=== PATIENT | female | born 1995 | race Caucasian/White ===

== ENCOUNTER → 2018-02-19 | Outpatient (CLI) | payer OTHER | LOC: M LRY 08:33 | DX: N92.6 Irregular menstruation, unspecified (principal); Z97.5 Presence of (intrauterine) contraceptive device | CPT/HCPCS: 76830 ==

== ENCOUNTER 2018-05-29 07:32 | Emergency (ER) | payer OTHER | END 2018-05-29 08:05 | disposition home or self-care (01) | LOC: M ED 07:32 | DX: H10.31 Unspecified acute conjunctivitis, right eye (principal) | CPT/HCPCS: 99283 ==

== ENCOUNTER 2019-08-02 10:47 | Outpatient (CLI) | payer OTHER ==
[~2019-08-02] VITALS: Ht 157.5 cm; Wt 71.0 kg
[~2019-08-02 10:47] MED LIST: OFLO3OPSO OD
[2019-08-02 11:05] VITALS: BP 106/70
[2019-08-02] MEDS ORDERED: PRENTAB9 PO (11:11)
[2019-08-02] MEDS ORDERED: IRON65TA2 PO (11:15)
[2019-08-02] MEDS ORDERED: VITA100T59 PO (11:15)
[2019-08-02] MEDS ORDERED: APAP325T4 PO (11:17)
--- NOTE | 2019-08-02 11:51 | IPNPDOC ---
Text Note Date of Service The patient was seen on 08/02/19. NOTE OB Considerations: Uncomplicated 23y/o @ 38+3 wks by 6 wk US (SIOMARA [id number]) presents to triage complaining of low back pain. Patient reports back pain since Thursday, worsened after membranes sweep yesterday. She reports constant low back pain, which sometimes increases. She denies frontal contractions, LOF, vaginal bleeding. She endorses active movement. She denies abnormal discharge or dysuria. No fevers/chills. VS: T98.6 HR 106/70 RR 20 HR 86 98% RA Gen: Alert and oriented, no acute distress Resp: Non labored breathing CV: well perfused Abd: Gravid, non tender/non distended Back: patient reports low midline back pain. No CVA tenderness. Ext: No edema, erythema or calf tenderness DCE: /-3, posterior NST: 135, mod jensen, +accels, no decels TOCO: initially q4-5 minute contractions A/p: 23y/o @ 38+3 wks with low back pain of , not in active la bor. Normotensive with reassuring status. -Patient to continue heating pad, Tylenol 1,000mg q6 hours PRN not to exceed 3g /day. Warm bath for comfort. 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 States they are supportive and send her home as needed. -Return and labor precautions given -F/u centering as scheduled VS,Fishbone, I+O VS, Fishbone, I+O Vital Signs Date Time Temp Pulse Resp B/P (MAP) Pulse Ox O2 Delivery O2 Flow Rate FiO2 08/02/19 11:05 98.6 86 20 106/70 (82) 98 Room Air Mara Fierro MD Aug 02, 2019 11:51
[2019-08-02 11:58] VITALS: BP 118/66
== END 2019-08-02 12:00 | disposition home or self-care (01) ==
LOC: M LDO 10:47
PROVIDERS: ATTEND Obstetrics & Gynecology
DX: O26.893 Other specified pregnancy related conditions, third trimester (principal); M54.5 Low back pain; Z3A.38 38 weeks gestation of pregnancy
CPT/HCPCS: 59025; G0378; G0463

== ENCOUNTER 2019-08-04 19:50 | Outpatient (CLI) | payer OTHER ==
[~2019-08-04] VITALS: Ht 157.5 cm; Wt 73.1 kg
[~2019-08-04 19:50] MED LIST changes: +APAP325T4 PO; +IRON65TA2 PO; +PRENTAB9 PO; +VITA100T59 PO
[2019-08-04 20:06] VITALS: BP 124/75
--- NOTE | 2019-08-05 08:52 | HPE ---
DATE OF ADMISSION: 08/04/2019 This lady is a 23-year-old 2, para 1, LMP 09/15/2018 EDC 08/13/2019 at 38 and 6 weeks of gestation having contractions post stripping of her membranes in the office. Group B Streptococcus (GBS) negative. She was in here less than 48 hours ago with similar complaints. PAST HISTORY: 01/22/2015 at 37 weeks induction of labor, male, 5 pounds 12 ounces. LABS: O positive. HIV negative. Hep negative. RPR negative. Rubella immune. Varicella immune. Pap LGSIL. Urine negative. Gonorrhea and chlamydia are negative. 1-hour glucose was 131. There is no suggestion of a 3-hour GTT. Blood pressure is 124/75, respirations are 18, pulse 80, temperature 98.0. Urine is 1.005, pH 7, the rest are negative. On evaluation she does not appear in any acute distress. Symphysis fundus height is 38, vertex presenting. Four quadrant bowel sounds are noted. Pelvic examination she is 2-1/2 cm posteriorly, thick, -3 station. No change from her previous examination two days ago. She has a category 1 strip. Our plan of management is to make sure she is well-hydrated, discharged with instructions, keep her centering appointment on 08/09/2019. She was discharged undelivered. The rest the examination was unremarkable. Normocephalic, atraumatic. Neck full range of motion. Pupils equal and reactive to light. Distal pulses symmetric. No evidence of DVT, PE or superficial phlebitis. Chest is clear bilaterally bases. No wheezes or rhonchi. No CVA tenderness. Abdomen was soft, four quadrant bowel sounds are noted. No rashes, lesions or pruritus. No arthralgia or myalgia. No complaint joint pain. No cough, wheeze, shortness of breath or dyspnea on exertion. No nausea, vomiting, diarrhea or constipation. 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 No STDs, but she has an LGSIL on Pap smear to be followed up . Family history noncontributory. No surgical history contributory. She does not smoke, drink or abuse drugs. She is . No domestic violence. Presently her mother is at home looking after their 4-year-old. In summary have a term gestation having Matthew Avelar contractions. No change in her cervix. Discharged undelivered.
== END 2019-08-04 21:01 | disposition home or self-care (01) ==
LOC: M LDO 19:50
PROVIDERS: ATTEND Obstetrics & Gynecology
DX: O47.1 False labor at or after 37 completed weeks of gestation (principal); Z3A.38 38 weeks gestation of pregnancy
CPT/HCPCS: 59025; G0378; G0463

== ENCOUNTER 2019-08-09 03:37 | Inpatient (IN) | payer OTHER ==
[~2019-08-09] VITALS: Ht 157.5 cm; Wt 72.5 kg
[2019-08-09] VITALS (13 sets, daily range): BP systolic 115–166; BP diastolic 73–96
[2019-08-09] MEDS ORDERED: LACTATED RINGER'S 1000 ML IV STA (04:54)
[2019-08-09] MEDS ORDERED: LR 1,000 ML IV SCH ×2 (04:54→12:00)
--- NOTE | 2019-08-09 04:54 | IPNPDOC ---
Text Note Date of Service The patient was seen on 08/09/19. NOTE patient is a 24 yo @39+4wks gestation presents with regular painful contractions. denies CHIARA/VB. +FM. vitals: reviewed nad abd: gravid, soft, nt, cephalic by chevy's fht: 135/mod jensen/pos accel/no decel toco: ctx q 3mins ce: 60/-1 (per nursing check) a/p patient not in active labor. recheck in 2 hrs. repeat BP for mild range diastolic. DO Olivia VS,Daisy, I+O VS, Jacke, I+O Vital Signs Date Time Temp Pulse Resp B/P (MAP) Pulse Ox O2 Delivery O2 Flow Rate FiO2 08/09/19 03:52 98.3 76 18 131/96 (108) GIOVANI AMBROSIO DO Aug 09, 2019 04:26
[2019-08-09 05:27] LABS: HEMATOCRIT 33.1 % (36.0-47.0); HEMOGLOBIN 10.7 g/dl (12.0-15.5); MEAN CORPUSCULAR HEMOGLOBIN 27.1 pg (27.0-33.0); MEAN CORPUSCULAR HGB CONC 32.3 g/dl (32.0-36.5); MEAN CORPUSCULAR VOLUME 83.8 fl (80.0-96.0); PLATELET COUNT, AUTOMATED 280 10^3/uL (150-450); RED BLOOD COUNT 3.95 10^6/uL (4.00-5.40)
--- NOTE | 2019-08-09 05:33 | HPEPDOC ---
Obstetrical History & Physical General Date of Admission Aug 09, 2019 at 04:43 Primary Care Physician: A History of Present Illness Chief Complaint: Contractions, term, Other (CAT II heart tracing) Information Provided By: Patient Age: 24 : 2 Term: 1 Pre-term: 0 Abortions: 0 Livin Care Care: Good Care Dating Final EDC: Aug 13, 2019 Final EDC for Daily Update: Aug 13, 2019 Final EDC by: LMP, 1st trimester (US) Past Medical History Past Obstetrical History : Past Obstetrical History: Multigravida ( x1 @ 37wks, unmedicated) Social History Marital Status: Psychosocial History: No pertinent psych hx * Smoker: non-smoker Alcohol: Denies Drugs: denies Imunizations Tdap status: current Influenza Status: needs Allergies Coded Allergies: No Known Allergies (Unverified , 05/29/18) Medications Scheduled Ascorbic Acid (Vitamin C) 100 Mg Tablet, 1 TAB PO TID Ferrous Sulfate (Iron) 325 Mg Tablet, 1 TAB PO TID No.137/Iron/Folic Acd ( Vitamin Tablet) 1 Each Tablet, 1 TAB PO DAILY Physical Examination Physical Examination GENERAL: Alert and oriented times three. BREAST: . ABDOMEN: Gravid and non-tender to touch. FETUS: fetus is vertex (VTX) by Samuel. HEART RATE: Regular rate and rhythm. LUNGS: Clear to auscultation CTA. EXTREMITIES: No edeme/erythema/tenderness EFW: 3400gm by leonarda Vital Signs/I&O Vital Signs Date Time Temp Pulse Resp B/P (MAP) Pulse Ox O2 Delivery O2 Flow Rate FiO2 08/09/19 03:52 98.3 76 18 131/96 (108) Laboratory Data 24H LABS Laboratory Tests 2 08/09/19 04:53: Serology Scanned Report Hepatitis B Testing Pertinent Laboratoy Data Blood Type: O+ RBC Antibody Screen: Negative HIV: Negative Hepatitis B: Negative Rapid Plasma Reagin: Nonreactive Rubella: Immune Varicella: Nonreactive Chlamydia/Gonorrhea: Positive Group B Streptococcus: Negative Anatomy Ultrasound Placenta Location: Posterior Placenta Previa: No Steroid Therapy Steroid Therapy: No Vaginal Examination Dilation: 3 cm Effacement: 60% Station: -1 Cervical Consistency: Medium Cervical Position: Posterior Presentation: Cephalic presentation Assessment Heart Rate (FHR): 130 Variability: Moderate Accelerations: Positive Decelerations: Variable Tocometer Contractions: Yes Frequency: regular, every 2-5 min. Assessment/Plan Assessment patient is a 24 yo @ 39+3wks in early labor, variable decel while on monitor. Discussed with patient regarding admission and augmentation with pitocin and/or arom as needed. Discussed monitoring contractions and fht with external monitors and internal monitors as needed. Risk of section, use of forceps and vacuum and associated risk, infection requiring antibiotics and prolonged hospital stay, bleeding requiring blood transfusion and associated risk of anaphylactic reaction as well as transmission of blood borne pathogens like hepatitis and HIV, episiotomy, pain, and vaginal laceration discussed. Plan Admit and orient. 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 Diet: clears Group B Streptococcus (GBS) negative. Labs and intravenous (IV) per unit protocol. Counseled on Pitocin and induction of labor (IOL). Anticipate C-S as appropriate. GIOVANI AMBROSIO DO Aug 09, 2019 05:33
[2019-08-09 05:55] LABS: CREATININE,RANDOM URINE 36.5 MG/DL; TOTAL PROTEIN,RANDOM URINE 12.7 MG/DL (0.0-12.0)
[2019-08-09 05:56] LABS: ALT/SGPT 13 U/L (12-78); BILIRUBIN,TOTAL 0.4 MG/DL (0.2-1.0); CREATININE FOR GFR 0.83 MG/DL (0.55-1.30); GLOMERULAR FILTRATION RATE > 60.0 (>60); LDH LACTATE DEHYDROGENASE 182 U/L (84-246); URIC ACID 4.4 MG/DL (2.6-6.0)
[2019-08-09] MEDS ORDERED: OXYTOCIN 30 UNITS IN 0.9% NaCl 500ML IV BAG (J2590) As Ordered ONE (08:22)
--- NOTE | 2019-08-09 08:27 | IPNPDOC ---
Obstetrical Progress Note Date of Service Aug 09, 2019 Subjective Assumed care from Dr. Baker of 24yo at 39+3 weeks admitted this morning for early labor with category II FHT, subsequently progressed into active labor. Pt did have one elevated BP (diastolic 96; all others WNL); PC ratio 0.347 (no dx of Pre-E per report). Pt is currently alone, spouse at work (he is a civilian that works for [employer]); she is coping well, breathing through contractions. Objective O: VSS, BP normotensive FHR 140s, moderate variability, + accels, no decels noted CTX q2-3 minutes apart SVE at 0811: 8/90/-1, AROM with clear fluid Vital Signs Date Time Temp Pulse Resp B/P (MAP) Pulse Ox O2 Delivery O2 Flow Rate FiO2 08/09/19 06:11 71 20 132/83 (99) 08/09/19 03:52 98.3 Assessment Heart Rate (FHR): 140 Decelerations: None Tocometer Frequency: regular Assessment and Plan Status: Reassuring Group B Streptococcus: Negative Anticipate: Vaginal Delivery Additional Comments A: 24yo at 39+3wks, active labor, Category I FHT, VSS P: Intermittent monitoring per protocol Expectant management Anticipate Consult with OB if indicated ISAAC MCALLISTER CNM Aug 09, 2019 08:27
[2019-08-09] MEDS ORDERED: FENTANYL 2MCG/ML ROPIVACAINE 0.2% IN 0.9% NACL 100ML IVBAG As Ordered ONE (08:49)
[2019-08-09] MEDS ORDERED: BUTORPHANOL 2 MG/ML INJ (J0595) As Ordered ONE (09:45)
[2019-08-09] MEDS ORDERED: UNASYN 3 GM VIAL As Ordered ONE (10:19)
[2019-08-09] MEDS ORDERED: OXYTOCIN DRIP 30 UNITS in IV 1 EA IV SCH (10:20)
[2019-08-09] MEDS ORDERED: LIDOCAINE 1% SDV INJ 30 ML VIAL As Ordered ONE (10:23)
[2019-08-09] MEDS ORDERED: SUCCINYLCHOLINE 100 MG/5 ML SYRINGE (J0330) As Ordered ONE (10:23)
[2019-08-09] MEDS ORDERED: SILVER NITRATE APPLICATOR As Ordered ONE (10:23)
[2019-08-09] MEDS ORDERED: MIDAZOLAM INJ 2 MG/2 ML VIAL (J2250) As Ordered ONE (10:23)
[2019-08-09] MEDS ORDERED: PROPOFOL 200 MG/20 ML VIAL As Ordered ONE (10:23)
[2019-08-09] MEDS ORDERED: fentaNYL 100 MCG/2 ML INJECTION (J3010) As Ordered ONE (10:23)
[2019-08-09] MEDS ORDERED: LIDOCAINE 2% INJ 100 MG/5 ML SDV (FOR ANES.) As Ordered ONE (10:23)
[2019-08-09] MEDS ORDERED: BUPIVACAINE LIPOSOME/PF 1.3% 20ML VIAL (13.3MG/ML)(EXPAREL)(C9290 PER1MG) As Ordered ONE (10:27)
[2019-08-09] MEDS ORDERED: CARBOPROST TROMETHAMINE 250 MCG/ML AMP As Ordered ONE (10:27)
[2019-08-09] MEDS ORDERED: METHYLERGONOVINE MALEATE 0.2 MG/ML VIAL (J2210) As Ordered ONE (10:27)
[2019-08-09] MEDS ORDERED: METHYLENE BLUE 0.5% (5MG/ML) 10 ML AMP (PROVAYBLUE)(Q9968 PER 1MG) As Ordered ONE (10:27)
[2019-08-09] MEDS ORDERED: IBUPROFEN 600 MG TAB PO PRN (10:30)
[2019-08-09] MEDS ORDERED: BUTORPHANOL 2 MG/ML INJ (J0595) IV ONE (10:30)
[2019-08-09] MEDS ORDERED: ACETAMINOPHEN 500 MG TAB PO PRN (10:30)
[2019-08-09] MEDS ORDERED: AMPICILLIN SOD/SULBACTAM SOD 3 GM in D5W MINI-BAG PLUS 100 ML IV ONE (10:30)
[2019-08-09] MEDS ORDERED: IBUPROFEN 800 MG TAB PO PRN (10:30)
[2019-08-09] MEDS ORDERED: ACETAMINOPHEN TAB 650MG DOSE (2X325MG) PO PRN (10:30)
[2019-08-09] MEDS ORDERED: DOCUSATE SODIUM 100 MG CAP PO PRN (10:30)
--- NOTE | 2019-08-09 10:46 | DNPDOC ---
[facility] Delivery Note Delivery Note DATE OF DELIVERY: August 09, 2019 PREDELIVERY DIAGNOSIS: 39+3weeks' gestation and labor. POST DELIVERY DIAGNOSIS: Delivered with retained placenta (see separate note from Dr. Andrews). PROCEDURE: Spontaneous Vaginal Delivery CUSTOMER QUALITY SPECIALIST: ARNALDO Phillips ANESTHESIA: 2mg Stadol after delivery ESTIMATED BLOOD LOSS: 200mL (initially prior to OR) FINDINGS: 3180g Male infant, Score 8/9 DELIVERY SUMMARY: Called to room for imminent delivery of 24yo at 39+3wks. Pt was sitting up pending an epidural when she experienced a sudden urge to push. Pt was quickly repositioned to semi-fowlers and commenced strong, effective pushing. head delivered LILI and restituted to LOT. Right anterior shoulder delivered with ease, followed by left posterior shoulder, then remainder of viable male body delivered to maternal abdomen where he was dried and stimulated; quickly pinking up and strong, lusty cry. Once cord stopped pulsating, clamped x2 and cut by patient; cord blood collected for type and cornelia. Upon inspection of perineum and vagina, left labial abrasions present, but no repair required. Intermittent gentle cord traction applied and placenta failed to separate or descend over [address] Andrews at 35 minutes post delivery requesting assistance for retained placenta. Pt was administered 2mg stadol for pain control. Dr. Andrews attempted manual extraction, but was unsuccessful and the decision was made to take Ms. Muller to the OR for placental extraction. 3gm Unasyn ordered and started prior to taking pt to main OR. Please see sepa rate note. ISAAC ALVARADO CNM Aug 09, 2019 10:46
[2019-08-09] MEDS ORDERED: ePHEDrine SULFATE 25 MG/5 ML(5MG/ML) SYRINGE As Ordered ONE (10:56)
[2019-08-09] MEDS ORDERED: PHENYLephrine HCL 500 MCG/5 ML (100MCG/ML) SYRINGE (J2370) As Ordered ONE (10:56)
[2019-08-09] MEDS ORDERED: dexameTHASONE 4 MG/ML 1ML VIAL (J1100) As Ordered ONE (10:58)
[2019-08-09] MEDS ORDERED: ONDANSETRON 4MG/2ML VIAL (J2405) As Ordered ONE (11:07)
[2019-08-09] MEDS ORDERED: ACETAMINOPHEN 1000MG 100ML IV BTL (OFIRMEV) (J0131 PER 10MG) As Ordered ONE (11:14)
[2019-08-09] MEDS ORDERED: ONDANSETRON 4MG/2ML VIAL (J2405) IV PRN (12:00)
[2019-08-09] MEDS ORDERED: fentaNYL 100 MCG/2 ML INJECTION (J3010) IV PRN (12:00)
[2019-08-09] MEDS ORDERED: PERCOCET 5MG/325MG TAB PO PRN (12:00)
--- NOTE | 2019-08-09 17:51 | RO ---
DATE OF PROCEDURE: 08/09/2019 CLINICAL SERVICE: Obstetrics. INDICATIONS FOR OPERATION: Brittany is a 24-year-old 2, now para 2, status post an uncomplicated term vaginal delivery with retained placenta. Placenta was attempted to be removed in the labor room with manual extraction and traction on the umbilical cord. However, given lack of pain control, she did not have an epidural, we were unable to remove in the labor room and needed to move to the operating room. PREOPERATIVE DIAGNOSIS: Retained placenta, status post spontaneous vaginal delivery. POSTOPERATIVE DIAGNOSIS: Retained placenta, status post spontaneous vaginal delivery. OPERATION PERFORMED: Exam under anesthesia with manual extraction of retained placenta, and a left labial laceration repair. SURGEON: Nury Andrews MD EMERGENCY MAN: Conchis Phillips CNM MATERIAL FORWARDED TO THE LAB FOR EXAMINATION: Placenta with umbilical cord. DESCRIPTION OF FINDINGS: There was a retained placenta. INFECTION CLASSIFICATION: 2. ESTIMATED BLOOD LOSS: In the operating room 50 mL, in the labor room with the delivery approximately 200 mL. URINE OUTPUT: not measured IVF: 300 mL lactated Ringer's DESCRIPTION OF OPERATION: After obtaining informed consent, the patient was taken to the operating room where she underwent general anesthesia. She was placed in low lithotomy position, and the perineum and vagina were prepped and draped in a sterile fashion. At that point, hand was inserted into the vagina up through the cervix into the uterus where a plane was obtained between the placenta and the uterus. Because the patient had received medications for sedation, the placenta at this point was now easily retrievable because the uterus was more relaxed, and we were able to manually extract the placenta with the cord attached. Two extra sweeps within the uterus revealed no further membranes or placenta. Inspection of the perineum again at that point revealed a superficial left labial laceration that went down into the hymenal ring, and this was repaired with a running stitch using #4-0 Vicryl with complete hemostasis and excellent reapproximation noted. There was nothing retained in the vagina. The patient was given 0.2 mg of intramuscular (IM) Methergine for hemostasis given the extent of the exploration of her uterus, and she was also given a dose of 3g IV Unasyn for antibiotic prophylaxis. At that point, all counts were correct times two. The patient was awakened from anesthesia and taken to the recovery room in good condition. [facility]
--- NOTE | 2019-08-09 19:48 | IPNPDOC ---
Text Note Date of Service The patient was seen on 08/09/19. NOTE I was called by ARNALDO Phillips regarding retained placenta after otherwise unco mplicated this afternoon. I attempted manual extraction in the labor room, but was unable to retrieve the placenta given the patient's lack of pain control (she had already received 2mg of stadol prior). EBL at that point was 200ml total with no active bleeding and vital signs were wnl. I fully counseled the patient regarding exam under anesthesia with manual extraction of placenta, possible D&C. Also possible blood transfusion only if indicated. Patient and I signed the consent forms and we proceeded to the OR. See dictated operative report for further details. Dr. Nury Andrews MD VS,Daisy, I+O VS, Daisy I+Richelle Laboratory Tests 08/09/19 05:07 Vital Signs Date Time Temp Pulse Resp B/P (MAP) Pulse Ox O2 Delivery O2 Flow Rate FiO2 08/09/19 17:56 98.3 79 18 130/74 (92) 98 08/09/19 12:05 Room Air Nury Andrews MD Aug 09, 2019 19:48
[2019-08-09] MEDS: AMPICILLIN SOD/SULBACTAM SOD 3 GM in D5W MINI-BAG PLUS 100 ML IV SCH (20:23)
[2019-08-09] MEDS: CHLORASEPTIC SPRAY MT PRN (21:19)
[2019-08-10] MEDS: CHLORASEPTIC SPRAY MT PRN (01:14)
[2019-08-10] MEDS: AMPICILLIN SOD/SULBACTAM SOD 3 GM in D5W MINI-BAG PLUS 100 ML IV SCH ×2 (02:16→07:55)
[2019-08-10 06:13] VITALS: BP 106/61
[2019-08-10 07:16] LABS: MEAN CORPUSCULAR HEMOGLOBIN 27.1 pg (27.0-33.0); MEAN CORPUSCULAR HGB CONC 32.1 g/dl (32.0-36.5); MEAN CORPUSCULAR VOLUME 84.3 fl (80.0-96.0); PLATELET COUNT, AUTOMATED 273 10^3/uL (150-450); RED BLOOD COUNT 3.32 10^6/uL (4.00-5.40); WHITE BLOOD COUNT 17.4 10^3/uL (4.0-10.0)
--- NOTE | 2019-08-10 07:33 | IPNPDOC ---
Progress Note Date of Service: Aug 10, 2019 Day#: 1 Progress Note PPD 1 SUBJECT: Brittany is a 24-year-old 2 now Para 2002 status post spontaneous vaginal delivery at term on 08/10/19 with only complication being retained placenta that was removed in the OR. She has been receiving IV Unasyn for uterine evacuation. She received 1 dose of 0.2mg IM methergine in the OR for prophylaxis (total EBL 250ml). Superficial left labial laceration reapproximated. She has no complaints this morning, doing well on PPD1. She has been ambulating, voiding spontaneously without issue and tolerating regular diet. Breast feeding without issue. Reports lochia is like a normal period. No f/c/n/v/SOB/CP. OBJECTIVE: VITAL SIGNS: Within normal limits, afebrile. Alert and oriented times three. Abdomen: Fundus firm at U-2. Soft, NTTP. ASSESSMENT: Brittany is a 24-year-old 2 now Para 2002 status post spontaneous vaginal delivery at term on 08/10/19 with only complication being retained placenta that was removed in the OR. She has been receiving IV Unasyn for uterine evacuation. Vitals within normal limits, afebrile, hemodynamically stable with no evidence of infection. PLAN: 1. Discharge to home today. 2. Tylenol and Motrin for pain. 3. Encourage breast feeding and ambulation. 4. Uncertain regarding contraception 5. Routine PP visit in 6 weeks in clinic. 6. Discussed return precautions at length. Dr. Nury Andrews MD VS, I&O, 24H, Fishbone Vital Signs/I&O Vital Signs Date Time Temp Pulse Resp B/P (MAP) Pulse Ox O2 Delivery O2 Flow Rate FiO2 08/10/19 06:13 98.5 76 17 106/61 (76) 99 Room Air I&O- Last 24 Hours up to 6 AM 08/10/19 06:00 Intake Total 1855.5 ml Output Total 1390 ml Balance 465.5 ml Laboratory Data 24H LABS Laboratory Tests 2 08/10/19 07:08: Nucleated Red Blood Cells % (auto) 0.0 CBC/BMP Laboratory Tests 08/10/19 07:08 Nury Andrews MD Aug 10, 2019 07:33
--- NOTE | 2019-08-10 07:40 | DS.PDOC ---
Discharge Summary General Date of Admission Aug 09, 2019 at 04:43 Date of Discharge Aug 10, 2019 Attending Physician: Nury Andrews MD Discharge Summary PROCEDURES PERFORMED DURING STAY: exam under anesthesia with manual extraction of retained placenta ADMITTING DIAGNOSES: 1. Active labor DISCHARGE DIAGNOSES: 1. Active labor, retained placenta with manual removal COMPLICATIONS/CHIEF COMPLAINT: LABOR. HISTORY OF PRESENT ILLNESS: PPD 1 SUBJECT: Brittany is a 24-year-old 2 now Para 2002 status post spontaneous vaginal delivery at term on 08/10/19 with only complication being retained placenta that was removed in the OR. She received 24 hours of IV Unasyn for uterine evacuation. Vitals within normal limits, afebrile, hemodynamically stable with no evidence of infection. DISCHARGE MEDICATIONS: Please see below. ALLERGIES: NKDA PHYSICAL EXAMINATION ON DISCHARGE: VITAL SIGNS: Within normal limits, afebrile. Alert and oriented times three. Abdomen: Fundus firm at U-2. Soft, NTTP. LABORATORY DATA: Please see below. ACTIVITY: As tolerated, vaginal rest for 6 weeks Plan: 1. Discharge to home today. 2. Tylenol and Motrin for pain. 3. Encourage breast feeding and ambulation. 4. Uncertain regarding contraception 5. Routine PP visit in 6 weeks in clinic. 6. Discussed return precautions at length. DISPOSITION: home DISCHARGE CONDITION: Stable TIME SPENT ON DISCHARGE: Greater than [address] Nury Andrews MD Vital Signs/I&Os Vital Signs Date Time Temp Pulse Resp B/P (MAP) Pulse Ox O2 Delivery O2 Flow Rate FiO2 08/10/19 06:13 98.5 76 17 106/61 (76) 99 Room Air I&O- Last 24 Hours up to 6 AM 08/10/19 06:00 Intake Total 1855.5 ml Output Total 1390 ml Balance 465.5 ml Laboratory Data Labs 24H Laboratory Tests 2 08/10/19 07:08: Nucleated Red Blood Cells % (auto) 0.0 CBC/BMP Laboratory Tests 08/10/19 07:08 Discharge Medications Scheduled Ascorbic Acid (Vitamin C) 100 Mg Tablet, 1 TAB PO TID, (Reported) Ferrous Sulfate (Iron) 325 Mg Tablet, 1 TAB PO TID, (Reported) No.137/Iron/Folic Acd ( Vitamin Tablet) 1 Each Tablet, 1 TAB PO DAILY, (Reported) Allergies Coded Allergies: No Known Allergies (Unverified , 05/29/18) Nury Andrews MD Aug 10, 2019 07:40
[2019-08-10] MEDS ORDERED: IBUP80TA PO (07:41)
[2019-08-10] MEDS ORDERED: PRENATAL VITAMINS CHEWABLE TABLET PO SCH (09:00)
== END 2019-08-10 18:35 | disposition home or self-care (01) | DRG 807 ==
LOC: M LDO 03:37 → M LDI 04:43 → M OBS 12:59
PROVIDERS: ADMIT Obstetrics & Gynecology; ATTEND Obstetrics & Gynecology
PROC: 10D17Z9 Manual Extraction of Products of Conception, Retained, Via Natural or Artificial Opening (ICD-10-PCS; 2019-08-09)
PROC: 0HQ9XZZ Repair Perineum Skin, External Approach (ICD-10-PCS; 2019-08-09)
PROC: 10E0XZZ Delivery of Products of Conception, External Approach (ICD-10-PCS; principal; 2019-08-09 10:19)
DX: O73.0 Retained placenta without hemorrhage (principal); Z37.0 Single live birth; Z3A.39 39 weeks gestation of pregnancy; O70.0 First degree perineal laceration during delivery